=== PATIENT | female | born 1940 | race Caucasian/White ===

== ENCOUNTER 2021-09-30 | Inpatient (IN) | payer OTHER ==
[~2021-09-30] VITALS: Ht 172.7 cm; Wt 84.4 kg
[2021-09-30] VITALS (9 sets, daily range): BP systolic 122–141
[2021-09-30] MEDS ORDERED: cefTRIAXone 1 GM IVPB PREMIX 50 ML IV ONE (00:15)
[2021-09-30 01:11] LABS: BASOPHILS # (AUTO) 0.2 K/uL (0.0-0.2); BASOPHILS % (AUTO) 1.1 % (0.0-2.0); EOSINOPHILS # (AUTO) 0.1 K/uL (0.0-0.4); EOSINOPHILS % (AUTO) 0.4 % (0.0-4.0); HEMATOCRIT 39.4 % (36-48); HEMOGLOBIN 13.5 g/dL (12.0-16.0); LYMPHOCYTES # (AUTO) 1.2 K/uL (1.0-5.5); LYMPHOCYTES % (AUTO) 8.9 % (20.5-51.5); MEAN CORPUSCULAR HEMOGLOBIN 33 pg (27-31); MEAN CORPUSCULAR HGB CONC 34 % (32-36); MEAN CORPUSCULAR VOLUME 98 fL (79.0-98.0); MONOCYTES # (AUTO) 0.6 K/uL (0.0-1.0); MONOCYTES % (AUTO) 4.4 % (1.7-9.3); NEUTROPHILS # (AUTO) 11.9 K/uL (1.8-7.7); NEUTROPHILS % (AUTO) 85.2 % (40.0-70.0); PLATELET COUNT (AUTO) 158 K/uL (130-430); RED BLOOD CELL COUNT(AUTO) 4.04 MIL/uL (4.2-6.2); RED CELL DISTRIBUTION WIDTH 13.3 % (9.0-15.0); WHITE BLOOD COUNT (AUTO) 13.9 K/uL (4.8-10.8)
[2021-09-30 01:17] LABS: PROTHROMBIN TIME 10.9 SECS (9.5-12.5)
[2021-09-30 01:20] LABS: BILIRUBIN,URINE NEGATIVE (NEGATIVE); BLOOD, URINE NEGATIVE (NEGATIVE); COLOR,URINE YELLOW (YELLOW); GLUCOSE,URINE NEGATIVE (NEGATIVE); KETONES,URINE 1+ (NEGATIVE); LEUKOCYTE ESTERASE ,URINE TRACE (NEGATIVE); NITRITE, URINE NEGATIVE (NEGATIVE); PROTEIN URINE TRACE (NEGATIVE); UROBILINOGEN,URINE 0.2 (0.2-1.0)
[2021-09-30 01:24] LABS: ALANINE AMINOTRANSFERASE 44 U/L (12-78); ALBUMIN 2.6 g/dL (3.4-4.8); ASPARTATE AMINOTRANSFERASE 76 U/L (10-37); CALCIUM 9.2 mg/dL (8.4-11.0); CREATININE 1.68 mg/dL (0.55-1.30); GLUCOSE 151 mg/dL (70-99); TOTAL BILIRUBIN 0.6 mg/dL (0.0-1.0); UREA NITROGEN, BLOOD 43 mg/dL (8-21)
[2021-09-30] MEDS ORDERED: cefTRIAXone 1 GM VIAL ONE (01:25)
[2021-09-30] MEDS ORDERED: ONDANSETRON HCL 4 MG/2 ML VIAL ONE (01:25)
[2021-09-30 01:26] LABS: CLARITY/URINE HAZY (CLEAR)
[2021-09-30] MEDS ORDERED: ONDANSETRON HCL 4 MG/2 ML VIAL IVP ONE (01:30)
[2021-09-30 01:43] LABS: RBC,URINE NONE SEEN /HPF (0-3)
[2021-09-30 01:44] LABS: BACTERIA,URINE FEW /HPF (None Seen); WBC,URINE 0-3 /HPF (0-3)
[2021-09-30] MEDS ORDERED: ASPIRIN 325 MG TABLET PO ONE ×2 (02:00→02:15)
[2021-09-30] MEDS ORDERED: 0.45% NACL 1,000 ML IV SCH (02:15)
[2021-09-30] MEDS ORDERED: LISI20TA30 PO (02:20)
[2021-09-30] MEDS ORDERED: OMEP20CA15 PO (02:26)
[2021-09-30] MEDS ORDERED: SIMV-343 PO ×2 (02:27→02:28)
[2021-09-30] MEDS ORDERED: ALEN70TA3 PO (02:30)
[2021-09-30] MEDS ORDERED: CALC-823 PO (02:31)
[2021-09-30 04:04] LABS: ANION GAP 12 (5-15); CHLORIDE 108 mmol/L (98-107); POTASSIUM 3.7 mmol/L (3.5-5.1)
[2021-09-30 08:01] LABS: BASOPHILS % (AUTO) 0.1 % (0.0-2.0); EOSINOPHILS % (AUTO) 0.1 % (0.0-4.0); HEMATOCRIT 36.4 % (36-48); HEMOGLOBIN 12.4 g/dL (12.0-16.0); LYMPHOCYTES % (AUTO) 13.8 % (20.5-51.5); MEAN CORPUSCULAR HEMOGLOBIN 33 pg (27-31); MEAN CORPUSCULAR HGB CONC 34 % (32-36); MEAN CORPUSCULAR VOLUME 97 fL (79.0-98.0); MONOCYTES % (AUTO) 6.9 % (1.7-9.3); NEUTROPHILS # (AUTO) 11.4 K/uL (1.8-7.7); NEUTROPHILS % (AUTO) 79.1 % (40.0-70.0); PLATELET COUNT (AUTO) 163 K/uL (130-430); RED BLOOD CELL COUNT(AUTO) 3.73 MIL/uL (4.2-6.2); RED CELL DISTRIBUTION WIDTH 13.3 % (9.0-15.0); WHITE BLOOD COUNT (AUTO) 14.4 K/uL (4.8-10.8)
[2021-09-30 08:35] LABS: ANION GAP 8 (5-15); CALCIUM 8.4 mg/dL (8.4-11.0); CHLORIDE 108 mmol/L (98-107); GLUCOSE 122 mg/dL (70-99); SODIUM SERUM 141 mmol/L (136-145); UREA NITROGEN, BLOOD 43 mg/dL (8-21)
[2021-09-30] MEDS ORDERED: NS 500 ML IV ONE (08:45)
[2021-09-30 08:49] LABS: ALANINE AMINOTRANSFERASE 39 U/L (12-78); ALBUMIN 2.3 g/dL (3.4-4.8); ASPARTATE AMINOTRANSFERASE 56 U/L (10-37); LIPASE 41 U/L (73-393); THYROID STIMULATING HORMONE 1.43 uIu/mL (0.36-3.74); TOTAL BILIRUBIN 0.3 mg/dL (0.0-1.0)
[2021-09-30 09:15] LABS: PROTHROMBIN TIME 10.6 SECS (9.5-12.5)
[2021-09-30] MEDS ORDERED: DIATR MEGLU/DIATRIZ SOD 30 ML SOLUTION PO ONE (09:31)
[2021-09-30] MEDS: NACL 0.9% 1,000 ML IV SCH ×2 (10:30→17:44)
[2021-09-30] MEDS ORDERED: SIMVASTATIN 20 MG TABLET PO ONE (16:00)
[2021-09-30] MEDS ORDERED: lisinopriL 20 MG TABLET PO ONE (16:00)
[2021-09-30] MEDS ORDERED: PANTOPRAZOLE SODIUM 40 MG TAB PO ONE (16:15)
[2021-09-30] MEDS ORDERED: cefTRIAXone 1 GM IVPB PREMIX 50 ML IV SCH (21:00)
[2021-09-30] MEDS: MIRTAZAPINE 15 MG TABLET PO SCH (21:27)
[2021-09-30] MEDS: CALCIUM CARBONATE/VITAMIN D3 1 TAB TABLET PO SCH (21:29)
[2021-10-01] VITALS (7 sets, daily range): BP systolic 121–145
[2021-10-01 06:35] LABS: ANION GAP 8 (5-15); CALCIUM 8.6 mg/dL (8.4-11.0); CHLORIDE 109 mmol/L (98-107); CREATININE 1.13 mg/dL (0.55-1.30); GLUCOSE 86 mg/dL (70-99); POTASSIUM 3.3 mmol/L (3.5-5.1); SODIUM SERUM 143 mmol/L (136-145); UREA NITROGEN, BLOOD 30 mg/dL (8-21)
[2021-10-01 06:43] LABS: ALANINE AMINOTRANSFERASE 36 U/L (12-78); ALBUMIN 2.4 g/dL (3.4-4.8); ASPARTATE AMINOTRANSFERASE 35 U/L (10-37); TOTAL BILIRUBIN 0.4 mg/dL (0.0-1.0)
[2021-10-01] MEDS: CALCIUM CARBONATE/VITAMIN D3 1 TAB TABLET PO SCH ×2 (08:32→22:07)
[2021-10-01] MEDS: SIMVASTATIN 20 MG TABLET PO SCH (08:32)
[2021-10-01] MEDS: PANTOPRAZOLE SODIUM 40 MG TAB PO SCH (08:32)
[2021-10-01] MEDS: lisinopriL 20 MG TABLET PO SCH (09:44)
[2021-10-01] MEDS: MIRTAZAPINE 15 MG TABLET PO SCH (22:07)
[2021-10-01] MEDS: NACL 0.9% 1,000 ML IV SCH (22:12)
[2021-10-02] VITALS (8 sets, daily range): BP systolic 124–149
[2021-10-02 06:36] LABS: BASOPHILS # (AUTO) 0.1 K/uL (0.0-0.2); BASOPHILS % (AUTO) 0.7 % (0.0-2.0); EOSINOPHILS # (AUTO) 0.3 K/uL (0.0-0.4); EOSINOPHILS % (AUTO) 3.4 % (0.0-4.0); HEMATOCRIT 40.2 % (36-48); HEMOGLOBIN 13.8 g/dL (12.0-16.0); LYMPHOCYTES # (AUTO) 3.2 K/uL (1.0-5.5); LYMPHOCYTES % (AUTO) 31.1 % (20.5-51.5); MEAN CORPUSCULAR HEMOGLOBIN 33 pg (27-31); MEAN CORPUSCULAR HGB CONC 34 % (32-36); MEAN CORPUSCULAR VOLUME 97 fL (79.0-98.0); MONOCYTES # (AUTO) 0.7 K/uL (0.0-1.0); MONOCYTES % (AUTO) 7.2 % (1.7-9.3); NEUTROPHILS % (AUTO) 57.6 % (40.0-70.0); PLATELET COUNT (AUTO) 207 K/uL (130-430); RED BLOOD CELL COUNT(AUTO) 4.14 MIL/uL (4.2-6.2); RED CELL DISTRIBUTION WIDTH 13.2 % (9.0-15.0); WHITE BLOOD COUNT (AUTO) 10.3 K/uL (4.8-10.8)
[2021-10-02] MEDS: PANTOPRAZOLE SODIUM 40 MG TAB PO SCH (08:21)
[2021-10-02] MEDS: SIMVASTATIN 20 MG TABLET PO SCH (08:21)
[2021-10-02] MEDS: CALCIUM CARBONATE/VITAMIN D3 1 TAB TABLET PO SCH (08:22)
[2021-10-02] MEDS: lisinopriL 20 MG TABLET PO SCH (08:22)
[2021-10-02 09:50] LABS: ALANINE AMINOTRANSFERASE 36 U/L (12-78); ALBUMIN 2.4 g/dL (3.4-4.8); ANION GAP 9 (5-15); ASPARTATE AMINOTRANSFERASE 39 U/L (10-37); CALCIUM 8.4 mg/dL (8.4-11.0); CHLORIDE 113 mmol/L (98-107); CREATININE 1.05 mg/dL (0.55-1.30); GLUCOSE 96 mg/dL (70-99); POTASSIUM 3.7 mmol/L (3.5-5.1); SODIUM SERUM 145 mmol/L (136-145); TOTAL BILIRUBIN 0.2 mg/dL (0.0-1.0); UREA NITROGEN, BLOOD 23 mg/dL (8-21)
[2021-10-02] MEDS ORDERED: VANCOMYCIN HCL 1,500 MG in NS 250 ML IV SCH (18:00)
[2021-10-06] MEDS ORDERED: ALENDRONATE SODIUM 70 MG TABLET (FOSAMAX) PO SCH (06:00)
== END 2021-10-02 20:25 | DRG 871 ==
LOC: SED → STU 02:03
PROVIDERS: ADMIT Internal Medicine; ATTEND Internal Medicine
DX: A41.9 Sepsis, unspecified organism (principal); E43 Unspecified severe protein-calorie malnutrition; N17.0 Acute kidney failure with tubular necrosis; I21.4 Non-ST elevation (NSTEMI) myocardial infarction; N39.0 Urinary tract infection, site not specified; G30.9 Alzheimer's disease, unspecified; F02.80 Dementia in other diseases classified elsewhere, unspecified severity, without behavioral disturbance, psychotic disturbance, mood disturbance, and anxiety; Z20.822 Contact with and (suspected) exposure to COVID-19; R62.7 Adult failure to thrive; I10 Essential (primary) hypertension; A08.4 Viral intestinal infection, unspecified; M81.0 Age-related osteoporosis without current pathological fracture; K21.9 Gastro-esophageal reflux disease without esophagitis; E86.0 Dehydration; E78.5 Hyperlipidemia, unspecified; Z79.899 Other long term (current) drug therapy; Z79.83 Long term (current) use of bisphosphonates; Z28.310 Unvaccinated for COVID-19; Z68.28 Body mass index [BMI] 28.0-28.9, adult
CPT/HCPCS: 36415; 71045; 76376; 76700-TC; 80053; 81000; 83605; 83690; 83880; 84443; 84484; 85025; 85610-TC; 85730-TC; 86886; 86900; 86901; 87040; 87086; 87186-TC; 93005; 93306; 96365; 96375; 97110-GP; 97116-GP; 97163-GP; 99291; G0378; J0696; J2405; J3370; J7050; Q9964

== ENCOUNTER 2021-11-27 01:57 | Emergency (ER) | payer OTHER ==
[~2021-11-27 01:57] MED LIST: ALEN70TA84 PO; CALC-823 PO; LISI20TA30 PO; OMEP20CA15 PO; SIMV-343 PO
--- NOTE | 2021-11-27 01:58 | NUR ---
Pt to bed [2]. BIB SQ [64]. ER physician notified. RN INTEGRITY, SQ64 STATED 80YO FEMALE BEING BROUGHT IN FOR SOB. UPON ARRIVAL, PATIENT HAD AN OPA IN AND EMT'S WERE BAGGING PATIENT. UPON ARRIVAL TO ED 2, PATIENT WAS BLUE AND PULSE CHECK WAS PERFORMED. NO PULSE PRESENT AT THIS TIME. CODE BLUE STARTED. NO IV ACCESS WAS DONE RN INTEGRITY. PER EMS, PATIENT WAS INCREASED IN ALTERED LEVEL OF CONSCIOUSNESS AND ON 15L NONREBREATHER. PER EMS, RIGHT BEFORE ARRIVAL, PATIENT NEEDED TO BE BAGGED. OPA WAS PLACED AND BAGGING OF PATIENT WAS BEING PERFORMED. CODE BLUE WAS INITIATED AT 0158, DR. SAMS, RT KARI, AND RN'S WERE PRESENT. PLEASE SEE CODE BLUE CHARTING.
--- NOTE | 2021-11-27 02:06 | NUR ---
TIME OF PER DR. SAMS.
--- NOTE | 2021-11-27 02:48 | NUR ---
[facility] [employer] called contacted by RICHARD CORRAL. Spoke with .NO CASE AT THIS TIME.
--- NOTE | 2021-11-27 02:49 | NUR ---
[facility] procurement agency contacted by RICHARD CORRAL. Case # , SPOKE TO CHIKIS WOODSON.
--- NOTE | 2021-11-27 02:57 | NUR ---
CALLED AND NOTIFIED OF PATIENT PASSING AWAY. HUNG UP PHONE CALL PRIOR TO GETTING MORTUARY INFORMATION, STATED HE NEEDED TO CALL DAUGHTER.
--- NOTE | 2021-11-27 03:10 | NUR ---
DR. RATLIFF, PMD NOTIFIED OF . STATES WILL SIGN CERTIFICATE.
--- NOTE | 2021-11-27 04:12 | NUR ---
FAMILY VISITED PATIENT AND APPROPRIATE SIGNATURES WERE OBTAINED.
--- NOTE | 2021-11-27 06:15 | NUR ---
SPOKE TO HUDSON FROM [facility] [employer] FOR PICK-UP OF BODY. STATED HE COULD NOT GIVE AN ETA FOR PICK-UP BUT STATED THEY WOULD BE ON THEIR WAY.
--- NOTE | 2021-11-27 07:22 | NUR ---
[employer] [facility] HERE FOR PICKUP ON BEHALF OF [facility]
--- NOTE | 2021-11-27 07:48 | NUR ---
VERONICA CAMILO [facility] RECEIVED AND TRANSFERRED PT.
[2021-11-27] MEDS ORDERED: EPINEPHrine JECT 0.1 MG/ML SYR ONE (08:12)
[2021-11-27] MEDS ORDERED: SODIUM BICARBONATE 8.4% JECT 50 MEQ/50 ML SYRINGE ONE (08:12)
[2021-11-27] MEDS ORDERED: DEXTROSE 50% JECT 50 ML DISP.SYRIN ONE (08:12)
== END 2021-11-27 07:48 ==
LOC: SED 01:57
DX: I46.9 Cardiac arrest, cause unspecified (principal); J96.90 Respiratory failure, unspecified, unspecified whether with hypoxia or hypercapnia; Z79.899 Other long term (current) drug therapy
CPT/HCPCS: 99285; 92950; J0171